=== PATIENT | male | born 1980 | race Caucasian/White ===

== ENCOUNTER 2020-10-08 08:34 | Day surgery (SDC) | payer OTHER ==
[2020-10-06 09:59] LABS: BASOPHILS % (AUTO) 0.8 % (0.0-5.0); EOSINOPHILS % (AUTO) 5.7 % (0.0-8.0); LYMPHOCYTES % (AUTO) 22.3 % (21.0-51.0); MEAN CORPUSCULAR HEMOGLOBIN 30.1 pg (27.0-33.0); MEAN CORPUSCULAR VOLUME 91.3 fL (79-99); MONOCYTES % (AUTO) 7.2 % (3.0-13.0); NEUTROPHILS % (AUTO) 63.7 % (40.0-77.0); PLATELET COUNT (AUTO) 376 K/uL (130-400); RED BLOOD CELL COUNT(AUTO) 4.38 MIL/uL (4.50-6.20); RED CELL DISTRIBUTION WIDTH 12.7 % (11.0-15.5); WHITE BLOOD COUNT (AUTO) 13.3 K/uL (4.8-10.8)
[2020-10-06 10:01] LABS: APPEARANCE,URINE Clear (CLEAR); BILIRUBIN,URINE Negative (NEGATIVE); COLOR,URINE Yellow (YELLOW); GLUCOSE, URINE (UA) Negative (NEGATIVE); KETONES,URINE Trace mg/dL (NEGATIVE); LEUKOCYTE ESTERASE ,URINE Negative (NEGATIVE); NITRATE,URINE Negative (NEGATIVE); OCCULT BLOOD,URINE Negative (NEGATIVE); PROTEIN,URINE Negative (NEGATIVE)
[2020-10-06 10:10] LABS: BACTERIA,URINE None Seen /HPF (None Seen); PROTHROMBIN TIME 10.9 SEC (9.6-11.6); RBC,URINE 0-1 /HPF (0-1); SQUAMOUS EPITHELIAL CELL,UR 0-2 /HPF (0-2); WBC,URINE None Seen /HPF (0-1)
[2020-10-06 10:11] LABS: PARTIAL THROMBOPLASTIN TIME 27.5 SEC (26.3-35.5)
[2020-10-06 10:12] LABS: POTASSIUM 4.4 mmol/L (3.5-5.1)
[2020-10-07 12:35] VITALS: BP 108/65
[2020-10-08] VITALS (11 sets, daily range): BP systolic 109–122; BP diastolic 68–77
[~2020-10-08] VITALS: Ht 175.3 cm; Wt 95.3 kg
[~2020-10-08 08:34] MED LIST: 0.9%NACL 1000ML 1,000 ML IV ONE; AEC81 PO; ATOR40TA71 PO; ICOS1CAP PO; LOSA25TA41 PO; METO25TA6 PO; TICA90TA PO
[2020-10-08] MEDS ORDERED: NITROGLYCERIN 2 MG VIAL IV ONE (10:05)
[2020-10-08] MEDS ORDERED: IOHEXOL-350 50ML VIAL IV ONE (10:06)
[2020-10-08] MEDS ORDERED: LIDOCAINE HCL 400MG/20ML VIAL ONE (10:06)
[2020-10-08] MEDS ORDERED: IOHEXOL 350 MG/ML 100ML INFUS..BTL IV ONE (10:06)
[2020-10-08] MEDS ORDERED: MIDAZOLAM HCL 1 MG/ML 2ML VIAL ONE (10:29)
[2020-10-08] MEDS ORDERED: FENTANYL CITRATE PF 50 MCG/1 ML 2ML VIAL ONE (10:29)
[2020-10-08] MEDS ORDERED: NICARDIPINE 25MG INJ IV ONE (10:33)
[2020-10-08] MEDS ORDERED: HEPARIN 10,000 UNIT/10ML (1,000 UNIT/ML) VIAL ONE (10:33)
[2020-10-08] MEDS ORDERED: TICAGRELOR 90 MG TABLET ONE (11:17)
[2020-10-08] MEDS ORDERED: ASPIRIN 325MG EC TAB PO ONE (11:17)
[2020-10-08] MEDS ORDERED: 0.9%NACL 1000ML 1,000 ML IV SCH (12:15)
== END 2020-10-08 17:28 | disposition home or self-care (01) ==
LOC: DAH 08:34
PROVIDERS: ATTEND Internal Medicine Cardiovascular Disease
DX: I25.119 Atherosclerotic heart disease of native coronary artery with unspecified angina pectoris (principal); E78.49 Other hyperlipidemia; I25.2 Old myocardial infarction; Z87.891 Personal history of nicotine dependence; Z79.01 Long term (current) use of anticoagulants; Z79.82 Long term (current) use of aspirin; Z82.49 Family history of ischemic heart disease and other diseases of the circulatory system; Z83.438 Family history of other disorder of lipoprotein metabolism and other lipidemia; Z80.9 Family history of malignant neoplasm, unspecified; Z83.3 Family history of diabetes mellitus; Z79.899 Other long term (current) drug therapy; Z98.890 Other specified postprocedural states
CPT/HCPCS: 36415 ×2; 71045; 80048; 81001; 85025; 85347; 85610; 85730; 93005; 93454; A4215; A4216; A4221; A4222; A4223 ×3; A4606; A4663; A6260; C1725; C1769 ×3; C1874; C1887 ×2; C1894; C9600; J1644 ×3; J2250; J3010; J3490 ×3; J7030; Q9965 ×2; Q9967 ×2; 99156; 99157

== ENCOUNTER → 2024-04-08 | Outpatient (CLI) | payer OTHER ==
[~2024-04-08] MED LIST changes: -0.9%NACL 1000ML 1,000 ML IV ONE
[2024-04-08 12:42] LABS: APPEARANCE,URINE CLEAR (CLEAR); BILIRUBIN,URINE NEGATIVE (NEGATIVE); COLOR,URINE COLORLESS (YELLOW); GLUCOSE, URINE (UA) NEGATIVE (NEGATIVE); KETONES,URINE NEGATIVE (NEGATIVE); LEUKOCYTE ESTERASE ,URINE NEGATIVE Leu/uL (NEGATIVE); NITRATE,URINE NEGATIVE (NEGATIVE); PROTEIN,URINE NEGATIVE (NEGATIVE); UROBILINOGEN,URINE 0.2 mg/dL (0.2-1.0)
[2024-04-08 12:45] LABS: HEMOGLOBIN A1C 5.7 % (4.0-6.0)
[2024-04-08 12:46] LABS: ADD UA MICROSCOPIC YES
[2024-04-08 12:52] LABS: ALBUMIN 4.2 g/dL (3.5-5.0); BILIRUBIN,TOTAL 0.3 mg/dL (0.2-1.0); POTASSIUM 5.6 mmol/L (3.5-5.1); TOTAL PROTEIN, SERUM 7.5 g/dL (6.0-8.3)
[2024-04-08 12:54] LABS: MUCUS,URINE RARE LPF (None Seen); RBC,URINE 0-1 /HPF (0-1); SQUAMOUS EPITHELIAL CELL,UR RARE /HPF (0-2); WBC,URINE 0-1 /HPF (0-1)
== END | disposition home or self-care (01) ==
LOC: LAB 11:51
PROVIDERS: ATTEND Family Medicine
DX: M47.816 Spondylosis without myelopathy or radiculopathy, lumbar region (principal); M54.50 Low back pain, unspecified; I11.9 Hypertensive heart disease without heart failure; E78.2 Mixed hyperlipidemia; R73.01 Impaired fasting glucose
CPT/HCPCS: 36415; 72100; 80053; 80061; 81001; 82043; 82570; 83036

== ENCOUNTER → 2025-01-28 | Outpatient (CLI) | payer OTHER ==
[2025-01-28 15:02] LABS: ASPARTATE AMINOTRANSFERASE 19.0 U/L (10-37); CREATININE 0.9 mg/dL (0.5-1.3); GLOMERULAR FILTR. RATE CALC 108.0 mL/min (>90); GLUCOSE,RANDOM 91.0 mg/dL (70-105); SODIUM SERUM 141.0 mmol/L (136-145); TOTAL PROTEIN, SERUM 7.5 g/dL (6.0-8.3); UREA NITROGEN, BLOOD 16.0 mg/dL (7-18)
== END | disposition home or self-care (01) ==
LOC: LAB 14:07
PROVIDERS: ATTEND Internal Medicine Cardiovascular Disease
DX: I25.10 Atherosclerotic heart disease of native coronary artery without angina pectoris (principal)
CPT/HCPCS: 36415; 80053

== ENCOUNTER → 2025-02-06 | Outpatient (CLI) | payer OTHER | END | disposition home or self-care (01) | LOC: RAH 01-28 13:37 | PROVIDERS: ATTEND Internal Medicine Cardiovascular Disease | DX: I25.10 Atherosclerotic heart disease of native coronary artery without angina pectoris (principal) | CPT/HCPCS: 75574 ==

== ENCOUNTER 2025-02-25 06:07 | Day surgery (SDC) | payer OTHER ==
[2025-02-23 11:41] LABS: IMMATURE GRANULOCYTE ABSOLUTE 0.03 K/uL (0-1); NUCLEATED RED BLOOD CELLS 0.0 % (0.0-0.19); PLATELET COUNT (AUTO) 325 K/uL (130-400); RED BLOOD CELL COUNT(AUTO) 4.22 MIL/uL (4.50-6.20); RED CELL DISTRIBUTION WIDTH 13.2 % (11.0-15.5); WHITE BLOOD COUNT (AUTO) 10.1 K/uL (4.8-10.8)
[2025-02-23 11:50] LABS: CREATININE 0.7 mg/dL (0.5-1.3); GLOMERULAR FILTR. RATE CALC 116.0 mL/min (>90); GLUCOSE,RANDOM 104.0 mg/dL (70-105); SODIUM SERUM 142.0 mmol/L (136-145); UREA NITROGEN, BLOOD 19.0 mg/dL (7-18)
[2025-02-23 11:53] LABS: INR 0.99 (0.85-1.15)
[2025-02-23 11:56] VITALS: BP 121/64; PULSE 54; RESP 18; TEMP 98.4
[2025-02-23 12:00] LABS: APPEARANCE,URINE CLEAR (CLEAR); GLUCOSE, URINE (UA) NEGATIVE (NEGATIVE); LEUKOCYTE ESTERASE ,URINE NEGATIVE Leu/uL (NEGATIVE); NITRATE,URINE NEGATIVE (NEGATIVE); OCCULT BLOOD,URINE +- (TRACE) (NEGATIVE)
[2025-02-23 12:05] LABS: ADD UA MICROSCOPIC YES
[2025-02-23 12:08] LABS: SQUAMOUS EPITHELIAL CELL,UR RARE /HPF (0-2)
--- NOTE | 2025-02-23 12:14 | EKG ---
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
--- NOTE | 2025-02-23 12:36 | NUR ---
REPORT INFORMED IVAN GHOTRA NP PT TOOK XARELTO 2.5 THIS AM AT 9. OK TO PROCEED
--- NOTE | 2025-02-23 22:14 | HMCIMG ---
EXAM: CR Chest, 1 view. CLINICAL HISTORY: Preop. COMPARISON: Prior CR chest dated 06 October 2020. FINDINGS: Mildly elevated left hemidiaphragm. The lungs show no infiltrate or other acute findings. No pleural effusion or pneumothorax. The cardiomediastinal silhouette is within normal limits. No acute osseous abnormality. IMPRESSION: No acute cardiopulmonary pathology is evident. Mildly elevated left hemidiaphragm. Compared to the prior chest radiograph, there is no interval change. /[place]
--- NOTE | 2025-02-24 12:42 | NUR ---
REPORT REPORTED BMP TO IVAN GHOTRA [employer]. RECEIVED ORDERS FOR IV HYDRATION NS 100MLS/HR UPON ARRIVAL.
[~2025-02-25] VITALS: Ht 175.3 cm; Wt 85.3 kg
[2025-02-25] VITALS (10 sets, daily range): BP systolic 120–138; BP diastolic 60–77; PULSE 54–69; RESP 12–15; TEMP 97.3–97.7
[~2025-02-25 06:07] MED LIST changes: -ICOS1CAP PO; +RIVA2.5T PO; -TICA90TA PO
[2025-02-25] MEDS ORDERED: 0.9%NACL 1000ML 1,000 ML IV SCH ×2 (07:00→10:00)
[2025-02-25] MEDS ORDERED: LIDOCAINE HCL 400MG/20ML VIAL ONE (07:12)
[2025-02-25] MEDS ORDERED: HEParin-NS 1,000 UNIT/500 ML 1,000 ML IV ONE (07:12)
[2025-02-25] MEDS ORDERED: IOHEXOL 350 MG/ML 100ML INFUS..BTL IV ONE (07:12)
[2025-02-25] MEDS ORDERED: NITROGLYCERIN 50MG VIAL ONE (07:13)
[2025-02-25] MEDS ORDERED: MIDAZOLAM HCL 1 MG/ML 2ML VIAL ONE ×3 (07:22→08:59)
[2025-02-25] MEDS ORDERED: HEParin-NS 1,000 UNIT/500 ML 500 ML IV ONE (08:41)
[2025-02-25] MEDS ORDERED: ASPIRIN 325MG EC TAB PO ONE (09:25)
--- NOTE | 2025-02-25 10:15 | PRN ---
PROCEDURE NOTE Indications: -Chest pain, CCS III symptoms -Abnormal CCTA done on 02/06/2025 (70-80% stenosis in the ostial LAD) -CAD/STEMI s/p PCI with PTCA and KIRIT placement in the proximal LAD done on 05/30/2020 ([facility]) -CAD s/p successful PCI with PTCA and KIRIT placement (MRO 3.0x18 mm) in the proximal-mid Ramus done on 10/08/2020 -HTN -HLP -Former tobacco abuse Procedures: Coronary angiogram, PCI with IVUS assessment of the LAD, balloon angioplasty and KIRIT placement in the ostial LAD, balloon angioplasty, cutting balloon angioplasty, and drug coated balloon angioplasty of the ISR within the stent in the proximal LAD Introduction: After informed written consent was obtained, the patient was brought to the Catheterization Lab in the usual fasting state. Following sterile prep and drape, a time out was performed, then moderate sedation was administered, 1 mg of Versed and 50 mcg of Fentanyl, then 1% Lidocaine was infiltrated into the right wrist. Using a Modified Seldinger technique, a 6Fr Sheath was inserted into the right radial artery. While under fluoroscopic guidance, diagnostic coronary catheters were advanced over a wire into the central circulation where they were aspirated, flushed and placed to pressure monitoring, once the wire was removed. Coronary Angio: The left and right coronary arteries were engaged with appropriate catheters and angiography was performed under continuous pressure monitoring. Cardiac Findings: Left dominant system LM: Large caliber vessel with mild luminal irregularities. The vessel bifurcates into the LAD and LCX. LAD: Large caliber vessel with 70-80% stenosis in the ostial LAD. There is a st ent in the proximal LAD with 70% ISR within the stent. There was 90% stenosis in the distal LAD, near the apex. RYAN 3 blood flow. DIAG1: Small caliber vessel with mild luminal irregularities. DIAG2: Medium caliber vessel with mild luminal irregularities. LCx: Large caliber vessel with mild luminal irregularities. Ramus: Large caliber vessel with a patent stent in the mid Ramus. Ramus A: Small caliber vessel with 80% stenosis in the proximal Ramus A. Ramus B: Small caliber vessel with 80% stenosis in the proximal Ramus B. LPDA: Medium caliber vessel with mild luminal irregularities. LPLV: Medium caliber vessel with mild luminal irregularities. RCA: Small caliber vessel with mild luminal irregularities. Medications given: Versed 5 mg, Fentanyl 150 mcg, heparin 10,000 units, nitroglycerin 600 mcg, nicardipine 400 mcg, ticagrelor 180 mg, aspirin 325 mg Coronary Intervention: Guide catheter: XB 3.0 Guidewire: 0.014 run-through After reviewing the above-mentioned findings the decision was made to intervene on the LAD. The the XB 3.0 guide catheter was advanced into the left main. We then advanced a 0.014 run-through guidewire across the areas stenosis and into the distal LAD. We then performed IVUS assessment of the LAD, which revealed 70% ISR within the stent in the proximal LAD and 70-80% stenosis in the ostial LAD. We then performed successful balloon angioplasty (4.0 x 20mm) in the ostial LAD and within the stent in the proximal LAD. We then performed cutting balloon angioplasty (4.0 x 10 mm) and drug coated balloon angioplasty (Milton scientific agent 4.0 x 20 mm) within the stent in the proximal LAD. We then performed successful KIRIT placement (Xience skypoint 4.0 x 18 mm) in the ostial LAD. The stent was merged with the existing stent in the proximal LAD. Repeat angiography then revealed widely patent stents in the ostial and proximal LAD and RYAN three blood flow distally. The guidewire and XB 3.0 guide catheter were then removed. The patient tolerated the procedure well and without issue. Complications: None Conscious Sedation Monitoring: Under my direct order and supervision, medication for moderate conscious sedation was administered by the nursing staff and the patients level of c onsciousness and physiological status was monitored by an independent trained nurse. Closure of Access Site: After the case completed the sheath was pulled and a TR band was applied over the right radial artery access site without complication resulting in hemostasis. Conclusion: 1. Chest pain 2. 1V CAD, 70-80% stenosis in the ostial LAD status post successful treatment with balloon angioplasty and KIRIT placement (Xience skypoint 4.0 x 18 mm), 70% stenosis within the stent in the proximal LAD status post successful treatment with balloon angioplasty, cutting balloon angioplasty, and drug coated balloon angioplasty, resulting in widely patent stents, and RYAN three blood flow distally. 3. Residual CAD, 90% stenosis in the distal LAD near the apex and 80% stenosis in the proximal ramus A and 80% stenosis in the proximal ramus B, not amenable to percutaneous intervention, will be treated conservatively 4. CAD/STEMI s/p PCI with PTCA and KIRIT placement in the proximal LAD done on 05/30/2020 ([facility]), s/p successful PCI with PTCA and KIRIT placement (MRO 3.0x18 mm) in the proximal-mid Ramus done on 10/08/2020 5. Abnormal CCTA done on 02/06/2025 6. HTN 7. HLP 8. Former tobacco abuse Recommendation: 1. Continue goal directed medical therapy. 2. Stop rivaroxaban, start ticagrelor 90 mg BID and continue aspirin 81 mg daily. The patient will remain on DAPT for a minimum of 6 months, but optimally for 1 year. (Written prescription provided). 3. Please start NS at 100 mL/hr x 3 hours 4. Wrist precautions 5. Please enact TR band removal protocol 6. No driving x 48 hours 7. No strenuous activity or heavy lifting x 2 weeks 8. Okay to discharge home once bedrest is complete and the patient's radial access site remains soft to palpation and free of significant bleeding, bruising, or hematoma formation. 9. Please have the patient follow up with Cardiology, Dr. Aiden Murray, 1-2 weeks after discharge. AIDEN MURRAY MD Feb 25, 2025 10:15
--- NOTE | 2025-02-25 12:40 | NUR ---
VASBAND REMOVED AT THIS TIME WRAPPED WITH STERILE GAUZE AND TEGADERM. RIGHT RADIAL SITE ASYMPTOMATIC.
--- NOTE | 2025-02-25 13:30 | NUR ---
BOTH PT AND SPOUSE GIVEN VERBAL AND WRITTEN DISCHARGE INSTRUCTIONS IV REMOVED SITE ASYMPTOMATIC. RIGHT RADIAL ASYMPTOMATIC. PT TAKEN OUT VIA WHEELCHAIR SPOUSE DRIVING
== END 2025-02-25 13:35 | disposition home or self-care (01) ==
LOC: DAH 06:07
PROVIDERS: ATTEND Internal Medicine Cardiovascular Disease
DX: R07.9 Chest pain, unspecified (principal); R94.39 Abnormal result of other cardiovascular function study; I25.118 Atherosclerotic heart disease of native coronary artery with other forms of angina pectoris; T82.855A Stenosis of coronary artery stent, initial encounter; I10 Essential (primary) hypertension; E78.5 Hyperlipidemia, unspecified; I25.2 Old myocardial infarction; F17.201 Nicotine dependence, unspecified, in remission; Z79.01 Long term (current) use of anticoagulants; Z79.82 Long term (current) use of aspirin; Z79.899 Other long term (current) drug therapy; Y71.2 Prosthetic and other implants, materials and accessory cardiovascular devices associated with adverse incidents
CPT/HCPCS: 80048; 83880; 85025; 85610; 85730; 81001; 36415; 71045; 93005; 92978; 85347 ×3; 99156; 99157 ×5; 93454; C9600; C1769 ×3; C1725 ×2; C1887 ×3; C1894 ×2; A4649; C1753; C1874; J3010 ×2; J3490 ×3; J1644 ×3; J2250 ×3; Q9967; A4215; A4222; A4221; A4663; A4216; A4606; Q9965 ×2; A4223 ×3; 92979; 96360; 96361